=== PATIENT | male | born 1990 | race Caucasian/White ===

== ENCOUNTER 2017-09-27 10:42 | Emergency (ER) | payer SELFPAY ==
[~2017-09-27] VITALS: Ht 160 cm; Wt 76.0 kg
[~2017-09-27 10:42] MED LIST: BENZ100C70 PO; CODE118S PO; IBUP-1542 PO; LORA1TAB54 PO; MECL12.574 PO; ONDA4TAB35 PO; RANI150T9 PO
[2017-09-27 10:45] VITALS: Ht 160 cm; Wt 76.0 kg
== END 2017-09-27 14:56 | disposition left against medical advice (07) ==
LOC: FTE 10:42
DX: Z53.21 Procedure and treatment not carried out due to patient leaving prior to being seen by health care provider (principal)

== ENCOUNTER 2018-08-10 17:37 | Emergency (ER) | END 2018-08-10 23:51 | disposition home or self-care (01) ==

== ENCOUNTER 2019-06-25 01:44 | Emergency (ER) | payer MEDICAID ==
[~2019-06-25] VITALS: Ht 172.7 cm; Wt 80.8 kg
[~2019-06-25 01:44] MED LIST changes: +BENZ-6 PO; -BENZ100C70 PO; +NAPR-985 PO; +PHEN-537 PO; +RANI-535 PO; -RANI150T9 PO; +TRAM50TA2 PO
[2019-06-25 01:46] VITALS: Ht 172.7 cm; Wt 80.8 kg
[2019-06-25] MEDS ORDERED: KETOROLAC 15 MG INJ IM STA (03:01)
[2019-06-25 03:27] VITALS: BP 104/67; PULSE 67; RESP 16
== END 2019-06-25 03:27 | disposition home or self-care (01) ==
LOC: E/R 01:44
DX: R00.2 Palpitations (principal); R07.9 Chest pain, unspecified
CPT/HCPCS: 93005; Z7502; J1885